=== PATIENT | male | born 1935 | race Caucasian/White ===

== ENCOUNTER → 2018-01-27 | Outpatient (CLI) | payer OTHER ==
[~2018-01-27] MED LIST: ACET500 PO; AMLO5 PO; AMOCLA875 PO; ASPI81CH PO; ASPI81EC PO; ATEN25 PO; ATEN50 PO; ATOR10 PO; ATOR20 PO; Aspir 8181 MG PO; BETA1 PO; BISA5EC PO; CINNAMON PO; CLOP75 PO; Cinnamon3.7 ML MC; ESTER-C 1,0001 EACH PO; FINA5 PO; FISH1000 PO; LAVAP17G PO; LEVE500 PO; LISI20 PO; METO10 PO; MULVITMIND PO; NEBI5 PO; OMEP20ER PO; Omeprazole20 M1 PO; PSYL5.85P PO; TAMS.4ER PO; UBID10; UBID10 PO
== END | disposition home or self-care (01) ==
LOC: PLD 08:17 → LAB SHORT 08:17
DX: L57.0 Actinic keratosis (principal)
CPT/HCPCS: 88305

== ENCOUNTER 2018-09-15 09:50 | Emergency (ER) | payer OTHER ==
[~2018-09-15] VITALS: Ht 177.8 cm; Wt 92.1 kg
[2018-09-15 11:14] LABS: Source, Urine Clean Catch
[2018-09-15 11:30] LABS: Bilirubin, Urine Neg (Neg); Blood, Urine Neg (Neg); Glucose Qualitative, Urine Neg (Neg); Ketones, Urine Neg (Neg); Leukocyte Esterase, Urine Neg (Neg); Nitrite, Urine Neg (Neg); Protein, Urine Neg (Neg); Urobilinogen, Urine NORM (Normal); pH, Urine 6.5 (5.0-8.0)
[2018-09-15 11:33] LABS: Appearance, Urine Clear (Clear); Color, Urine Yellow (P-Yellow)
[2018-09-15] MEDS ORDERED: QUET25 PO (11:37)
== END 2018-09-15 12:20 | disposition home or self-care (01) ==
LOC: ER 09:50
PROVIDERS: Emergency Medicine
DX: F03.90 Unspecified dementia, unspecified severity, without behavioral disturbance, psychotic disturbance, mood disturbance, and anxiety (principal); R45.1 Restlessness and agitation; F22 Delusional disorders; I10 Essential (primary) hypertension; I25.10 Atherosclerotic heart disease of native coronary artery without angina pectoris; E11.9 Type 2 diabetes mellitus without complications; E78.00 Pure hypercholesterolemia, unspecified; Z88.8 Allergy status to other drugs, medicaments and biological substances; Z79.899 Other long term (current) drug therapy; Z79.82 Long term (current) use of aspirin
CPT/HCPCS: 81003; 99283

== ENCOUNTER 2018-11-23 22:35 | Emergency (ER) | payer OTHER ==
[~2018-11-23] VITALS: Ht 172.7 cm; Wt 77.1 kg
[~2018-11-23 22:35] MED LIST changes: +QUET25 PO
== END 2018-11-24 00:20 | disposition home or self-care (01) ==
LOC: ER 22:35
DX: F03.90 Unspecified dementia, unspecified severity, without behavioral disturbance, psychotic disturbance, mood disturbance, and anxiety (principal); Z86.73 Personal history of transient ischemic attack (TIA), and cerebral infarction without residual deficits; E11.9 Type 2 diabetes mellitus without complications; Z87.891 Personal history of nicotine dependence; I10 Essential (primary) hypertension; I25.10 Atherosclerotic heart disease of native coronary artery without angina pectoris; Z79.899 Other long term (current) drug therapy; Z79.82 Long term (current) use of aspirin; Z88.8 Allergy status to other drugs, medicaments and biological substances
CPT/HCPCS: 99284

== ENCOUNTER 2018-12-02 11:37 | Inpatient (IN) | payer OTHER ==
[~2018-12-02] VITALS: Ht 177.8 cm; Wt 79.8 kg
[~2018-12-02 11:37] MED LIST changes: +Keppra750 MG PO
[2018-12-02 11:59] LABS: BASOPHILS ABSOLUTE AUTO 0.04 K/mm3 (0.00-0.23); BASOPHILS PERCENT AUTO 0 % (0-2); EOSINOPHILS PERCENT AUTO 0 % (0-6); Hematocrit 42.1 % (37.0-53.0); Hemoglobin 13.8 g/dL (13.5-17.5); IMMATURE GRAN ABSOLUTE AUTO 0.16 K/mm3 (0.00-0.10); IMMATURE GRAN PERCENT AUTO 1 % (0-1); LYMPHOCYTES ABSOLUTE AUTO 0.65 K/mm3 (0.84-5.20); LYMPHOCYTES PERCENT AUTO 3 % (21-46); MONOCYTES ABSOLUTE AUTO 0.78 K/mm3 (0.16-1.47); MONOCYTES PERCENT AUTO 4 % (4-13); Mean Corpuscular HGB 29.7 pg (26.0-34.0); Mean Corpuscular HGB Conc 32.8 g/dL (31.5-36.5); Mean Corpuscular Volume 91 fL (80-100); Mean Platelet Volume 11.5 fL (9.1-12.4); NEUTROPHILS ABSOLUTE AUTO 19.45 K/mm3 (1.96-9.15); NEUTROPHILS PERCENT AUTO 92 % (41-73); Platelet Count 296 K/mm3 (150-400); RDW Coefficient Variation 13.3 % (11.7-14.2); RDW Standard Deviation 43.8 fL (35.1-46.3); Red Blood Cell Count 4.65 M/mm3 (4.30-5.90); White Blood Cell Count 21.08 K/mm3 (4.00-11.30)
[2018-12-02 12:24] LABS: Albumin, Blood 3.8 g/dL (3.4-5.0); Albumin/Globulin Ratio 1.2 (0.8-1.8); Bilirubin, Total 0.5 mg/dL (0.1-1.0); Bun/Creatinine Ratio 17.9 (12.0-20.0); Calcium, Blood 9.1 mg/dL (8.5-10.1); Creatinine, Blood 2.07 mg/dL (0.60-1.20); Globulin, Blood 3.3 g/dL (2.2-4.0); Potassium, Blood 5.7 mmol/L (3.5-5.5); Total Protein, Blood 7.1 g/dL (6.4-8.2)
[2018-12-02 12:25] LABS: International Normalized Ratio 1.03; Prothrombin Time Results 10.9 Sec (9.7-11.5)
[2018-12-02] MEDS ORDERED: QUETIAPINE FUMA50 MG PO (12:45)
[2018-12-02] MEDS ORDERED: GABA300 PO (12:47)
[2018-12-02] MEDS ORDERED: FINA5 PO (12:47)
[2018-12-02] MEDS ORDERED: FURO20 PO (12:48)
[2018-12-02] MEDS ORDERED: LEVE500 PO (12:48)
[2018-12-02] MEDS ORDERED: LISI20 PO (12:48)
[2018-12-02] MEDS ORDERED: Zantac150 MG PO (12:49)
[2018-12-02] MEDS ORDERED: Exelon1 EAC1 TD (12:50)
[2018-12-02 13:27] LABS: Source, Urine Clean Catch
[2018-12-02 13:38] LABS: Bilirubin, Urine Neg (Neg); Blood, Urine 2+ (Neg); Glucose Qualitative, Urine Neg (Neg); Ketones, Urine 1+ (Neg); Leukocyte Esterase, Urine 1+ (Neg); Nitrite, Urine Neg (Neg); Protein, Urine 3+ (Neg); Specific Gravity, Urine 1.025 (1.003-1.022); Urobilinogen, Urine NORM (Normal)
[2018-12-02 13:48] LABS: Appearance, Urine Cloudy (Clear); Color, Urine Yellow (P-Yellow); Squamous Epithelial Cells Many /hpf (Few)
[2018-12-02 13:49] LABS: Bacteria Many /hpf; Red Blood Cells, Urine 0-2 /hpf (0-2)
[2018-12-02] MEDS ORDERED: ALPR.25 PO (14:29)
[2018-12-02] MEDS ORDERED: Ranitidine HCl300 MG PO (14:30)
--- NOTE | 2018-12-02 19:11 | NUR ---
HE WAS ADMITTED TO RM 337 FROM THE E[facility] THIS AFTERNOON BUT DUE TO HIS IMPULSIVE CONFUSED BEHAVIOR, HE WAS MOVED TO THE SCU TO RM 346. HIS WAS AWARE OF THE MOVE PRIOR TO HER LEAVING HIS BEDSIDE. I WILL CALL HER VERY SOON TO TELL HER THAT WE NEEDED TO PUT RESTRAINTS ON HIM ALSO TO KEEP HIM SAFE. HIS L.A. DRAW HEMOLIZED SO HAS BEEN REDRAWN NOW I BELIEVE. IVF'S WERE STARTED BUT HE COMPROMISED HIS IV SITE BY ALL HIS PULLING AND THRASHING. WILL REASSESS AND RESTART FLUIDS. NOTIFIED OF THE BEHAVIOR AND HIS TACHYCARDIA AT 140/MIN. ZYPREXA ORDERED AND IVF'S TO CONTINUE. PHOTOS TAKEN . SEE CHART. REPORT TO NIGHT RN.
[2018-12-03 01:04] LABS: BASOPHILS ABSOLUTE AUTO 0.03 K/mm3 (0.00-0.23); BASOPHILS PERCENT AUTO 0 % (0-2); EOSINOPHILS PERCENT AUTO 0 % (0-6); Hematocrit 35.4 % (37.0-53.0); IMMATURE GRAN ABSOLUTE AUTO 0.11 K/mm3 (0.00-0.10); IMMATURE GRAN PERCENT AUTO 1 % (0-1); LYMPHOCYTES ABSOLUTE AUTO 1.47 K/mm3 (0.84-5.20); LYMPHOCYTES PERCENT AUTO 7 % (21-46); MONOCYTES ABSOLUTE AUTO 1.49 K/mm3 (0.16-1.47); MONOCYTES PERCENT AUTO 7 % (4-13); Mean Corpuscular HGB 29.6 pg (26.0-34.0); Mean Corpuscular HGB Conc 33.9 g/dL (31.5-36.5); Mean Corpuscular Volume 87 fL (80-100); Mean Platelet Volume 11.5 fL (9.1-12.4); NEUTROPHILS ABSOLUTE AUTO 18.32 K/mm3 (1.96-9.15); NEUTROPHILS PERCENT AUTO 86 % (41-73); Platelet Count 248 K/mm3 (150-400); RDW Coefficient Variation 13.4 % (11.7-14.2); RDW Standard Deviation 42.8 fL (35.1-46.3); Red Blood Cell Count 4.05 M/mm3 (4.30-5.90); White Blood Cell Count 21.42 K/mm3 (4.00-11.30)
[2018-12-03 01:22] LABS: Albumin, Blood 3.3 g/dL (3.4-5.0); Albumin/Globulin Ratio 1.2 (0.8-1.8); Bilirubin, Total 0.5 mg/dL (0.1-1.0); Bun/Creatinine Ratio 24.5 (12.0-20.0); Calcium, Blood 8.3 mg/dL (8.5-10.1); Creatinine, Blood 1.59 mg/dL (0.60-1.20); Globulin, Blood 2.7 g/dL (2.2-4.0); Potassium, Blood 4.7 mmol/L (3.5-5.5)
--- NOTE | 2018-12-03 07:42 | NUR ---
12/02/18 2200 Pt had a critical lactic acid 3.7. Hospitalist Reny Castillo notified, 1 additional liter of fluid ordered. Hospitalist also notified of inability to void and extreme restlessness. Pt was bladder scanned for 440. Will straight cath if pt unable to void.
--- NOTE | 2018-12-03 07:45 | NUR ---
Rn summary: Patient has been restless most of the shift. Pt is in vest and thomas wrist shilpi for safety. Pt is constantly fighting the restraints and is not directable. Pt was straight cathed for 320cc strong urine at 2125. Pt was not able to void and 2nd bladder scan showed 520cc jeong cath placed without difficulty. Pt did receive zyprexa 10 mg IM and did sleep for a bit, 1.5 hours. Pt has otherwise been restless. He has pulled out 2 IV's and will pull on catheter even though restraints readjusted frequently. he wiggles down in bed. This am pt started to have a bit of a cough. Lungs sound sl more course, not really wet. Resp rate is 26. Pt medicated with prn lasix 20mg and iv fluids decreased to 25 until we can tallk with the DR. this am. Charge nurse was notified of the vew score of 4. Report to day shift RN. Cough was improved and hour after lasix given. Bed alarm is on. Close frequent monitoring.
--- NOTE | 2018-12-03 11:07 | NUR ---
HEART RATE THIS RN CALLED DR. SARKAR AND DISCUSSED PT'S HEART RATE THAT HAS SUSTAINED 120-130'S SINCE YESTERDAY. NO NEW ORDERS AT THIS TIME. DR. SARKAR SAID SHE WOULD LOOK OVER PT'S INFORMATION. WILL CONTINUE TO MONITOR.
--- NOTE | 2018-12-03 18:30 | NUR ---
PATIENT WAS NOT AWAKE ENOUGH TO EAT AT THIS TIME SO DINNER WAS NOT FED TO HIM. RN WAS NOTIFIED.
--- NOTE | 2018-12-03 18:40 | NUR ---
SHIFT SUMMARY PT HAS BEEN CONFUSED AND VERY RESTLESS ALL SHIFT. PT'S HEART RATE 120-130'S MOST OF THE SHIFT. THIS RN ADMINISTERED IV METOPROLOL X1 THIS SHIFT AND PT'S HEART RATE DOWN TO 116-120 FOR AWHILE. WHEN PT WAS SLEEPING BRIEFLY, HIS HEART RATE WAS 118. DR. SARKAR ORDERED PO METOPROLOL TO BE STARTED. FIRST DOSE GIVEN THIS EVENING. PT STARTED POCKETING HIS FOOD AT DINNER. DINNER HELD DUE TO THIS AND ASPIRATION RISK. NO ACUTE CHANGES THIS SHIFT. CALL LIGHT IN REACH. WILL CONTINUE TO MONITOR AND REPORT TO ONCOMING RN.
--- NOTE | 2018-12-04 03:18 | NUR ---
pt having increased agitation and attempting climb OOB, Ativan 1mg IVP given.
--- NOTE | 2018-12-04 04:05 | NUR ---
SHIFT SUMMARY: 83 Y/O MALE HAD RESTLESS NIGHT AT TIMES WITH ATIVAN 1MG IVP GIVEN X 2 WITH RELIEF FELT. PTS WAS ATTEMPTING PULL AT PENA, IV AND REMOVING TELEMETRY FREQUENTLY PRIOR TO ATIVAN. PT CONTINUES TO REQUIRE EDIL VEST AND BILATERAL SOFT WRIST RESTRAINTS FOR SAFETY. PT IS ALERT AND ORIENTED X 1, UNABLE TO FOLLOW ANY SIMPLE VERBAL COMMANDS AND REQUIRES REDIRECTION BY STAFF. PTS PENA CATHETER DRAINING YELLOW FLUID. PTS BED ALARM APPLIED, BED LOW POSITION, CALL LIGHT AT SIDE.
--- NOTE | 2018-12-04 06:22 | NUR ---
0614 PT INCREASINGLY AGITATED, MOVING AROUND IN BED AND UNABLE TO GET COMFORTABLE, UNABLE TO FOLLOW ANY REDIRECTIONS WHILE ATTEMPTING CLIMB OOB, REMOVING TELEMETRY AT TIMES. THIS NURSE GAVE PATIENT ATIVAN 1 MG, IVP VIA SL LEFT ANTECUBITAL.
--- NOTE | 2018-12-04 06:57 | NUR ---
PT RESTING COMFORTABLY LEFT LATERAL SIDE WITH RESTRAINTS INTACT.
--- NOTE | 2018-12-04 13:50 | NUR ---
Met in bed sleeping and the spouse in the room with him, she reports vu pt. is not improving , offered prayers and spiritual supportl
--- NOTE | 2018-12-04 15:10 | NUR ---
SPOKE WITH DR. SERRANO AND RENEWED ORDER FOR SOFT WRIST RESTRAINTS AND EDIL. CALLED DR. Archana REYES'S OFFICE AND LEFT MESSAGE WITH FACILITIES MAINTENANCE SUPERVISOR REGARDING NEW NURSE NOTIFY ORDER TO "D/C RESTRAINTS." AWAITING CALL BACK.
--- NOTE | 2018-12-04 18:09 | NUR ---
1730 FOLLEY CATHETER WAS REMOVED.
--- NOTE | 2018-12-04 19:03 | NUR ---
SHIFT SUMMARY- PT AXO TO SELF. PT C/O MOUTH PAIN THIS PM. MEDS GIVEN PER EMAR. RESP E/U ON RA. PENA AND TELE DC'D THIS PM. REMOVED WRIST RESTRAINTS THIS AFTERNOON. PT STARTED PULLING ON PENA, TELE AND IV. NOTIFIED DR. SERRANO RESTRAINTS STILL NEEDED. DR. SERRANO SAID OK TO RENEW RESTRAINT ORDER. A NURSE NOTIFY ENTERED BY MARYELLEN WAS ENTERED AFTER I SPOKE WITH DR. SERRANO AND RENEWED ORDER. CALLED DR. BOJORQUEZ'S OFFICE AND LEFT MESSAGE WITH MUSHROOM GROWTH MEDIA MIXER REGARDING THE MATTER AND A CALL BACK NUMBER. I DID NOT RECIEVE A CALL BACK. PT IN EDIL/WRIST RESTRAINTS PER DR. SERRANO. TURNS Q2H. NO OTHER SIGNIFICANT CHANGES THIS SHIFT.
--- NOTE | 2018-12-04 22:05 | NUR ---
2101 PT SLIGHTLY AGITATED AND ATTEMPTING CLIMB OOB, MOVING AROUND IN BED FROM LEFT TO RIGHT AND UNABLE TO FOLLOW ANY REDIRECTION WHILE EDIL AND BILATERAL SOFT WRIST RESTRAINTS APPLIED. ATIVAN 1MG IVP GIVEN WITH GOOD RELIEF NOTED.
--- NOTE | 2018-12-05 02:06 | NUR ---
PT INCONTINENT MODERATE AMOUNT YELLOW FLUID, BLADDERS SCANNED FOR 4 ML.
--- NOTE | 2018-12-05 04:05 | NUR ---
SHIFT SUMMARY: 83 Y/O MALE HAD RESTLESS BEGINNING TO SHIFT WITH ATTEMPTS CLIMB OOB WHILE PULLING AT SOFT WRIST RESTRAINTS AND EDIL VEST (PT GIVEN ATIVAN 1 MG IVP WITH RELIEF NOTED PATIENT WAS ABLE TO REST BETTER ALL SHIFT). PTS BLADDER WAS WAS INITIALLY 155ML AND THEN PATIENT HAD ONE MODERATE INCONTIENT VOID WITH BLADDER SCAN REFLECTING 4ML. PT TAKING FLUIDS WHEN OFFERED BY STAFF. PT IS ALERT TO PERSON ONLY AND MUMBLES INCOHERENT WORDS THAT ARE NOT UNDERSTANDABLE ALL SHIFT. PT CBG WAS 100 WITH NO COVERAGE ORDERED. PT APPEARS TO HAVE NO PAIN OR NAUSEA. PTS BED ALARM APPLIED, BED LOW POSITION, CALL LIGHT AT SIDE.
--- NOTE | 2018-12-05 05:10 | NUR ---
0434 PT INCREASINGLY AGITATED AGAIN, ATTEMPTING CLIMB OOB, GOWN REMOVED BY PATIENT WHILE TURNED SIDEWAYS IN BED. PT UNABLE TO FOLLOW ANY REDIRECTIONS FROM STAFF. PT REPOSITIONED AND NEW ATTENDS APPLIED (NO VOID) NOTED, ATIVAN 1 MG IVP GIVEN. 0510 PT RESTING COMFORTABLY NOW AFTER MEDICATIONS AND REPOSITIONING COMPLETED.
[2018-12-05 05:48] LABS: Albumin/Globulin Ratio 1.2 (0.8-1.8); Bilirubin, Total 0.5 mg/dL (0.1-1.0); Bun/Creatinine Ratio 17.4 (12.0-20.0); Calcium, Blood 8.3 mg/dL (8.5-10.1); Creatinine, Blood 1.44 mg/dL (0.60-1.20); Globulin, Blood 2.6 g/dL (2.2-4.0); Potassium, Blood 3.8 mmol/L (3.5-5.5); Total Protein, Blood 5.6 g/dL (6.4-8.2)
[2018-12-05 06:18] LABS: BASOPHILS ABSOLUTE AUTO 0.07 K/mm3 (0.00-0.23); BASOPHILS PERCENT AUTO 1 % (0-2); EOSINOPHILS ABSOLUTE AUTO 0.31 K/mm3 (0.00-0.68); EOSINOPHILS PERCENT AUTO 3 % (0-6); Hematocrit 37.5 % (37.0-53.0); Hemoglobin 12.5 g/dL (13.5-17.5); IMMATURE GRAN PERCENT AUTO 1 % (0-1); LYMPHOCYTES ABSOLUTE AUTO 1.39 K/mm3 (0.84-5.20); LYMPHOCYTES PERCENT AUTO 12 % (21-46); MONOCYTES ABSOLUTE AUTO 1.06 K/mm3 (0.16-1.47); MONOCYTES PERCENT AUTO 9 % (4-13); Mean Corpuscular HGB Conc 33.3 g/dL (31.5-36.5); Mean Platelet Volume 11.9 fL (9.1-12.4); NEUTROPHILS ABSOLUTE AUTO 9.04 K/mm3 (1.96-9.15); NEUTROPHILS PERCENT AUTO 76 % (41-73); Platelet Count 224 K/mm3 (150-400); RDW Coefficient Variation 13.3 % (11.7-14.2); RDW Standard Deviation 43.7 fL (35.1-46.3); Red Blood Cell Count 4.16 M/mm3 (4.30-5.90); White Blood Cell Count 11.97 K/mm3 (4.00-11.30)
[2018-12-05 06:19] LABS: Mean Corpuscular Volume 90 fL (80-100)
[2018-12-05 12:53] LABS: Source, Urine Catheter
[2018-12-05 13:14] LABS: Bilirubin, Urine Neg (Neg); Blood, Urine 4+ (Neg); Glucose Qualitative, Urine Neg (Neg); Ketones, Urine Neg (Neg); Leukocyte Esterase, Urine 1+ (Neg); Nitrite, Urine Neg (Neg); Protein, Urine 2+ (Neg); Urobilinogen, Urine NORM (Normal)
[2018-12-05 13:22] LABS: Appearance, Urine Hazy (Clear); Color, Urine Yellow (P-Yellow)
[2018-12-05 13:26] LABS: Squamous Epithelial Cells Rare /hpf (Few)
[2018-12-05 13:27] LABS: Bacteria Few /hpf; Uric Acid Crystals Many /hpf
--- NOTE | 2018-12-05 17:27 | NUR ---
SHIFT SUMMARY- PT AXO TO SELF. CONFUSED. NONSENSICAL SPEECH. NO S/S OF PAIN. PT PULLING ON RESTRAINTS, AGITATED AND DISROBING T/O SHIFT. MEDS GIVEN PER EMAR. PT KICKS AT TIMES DURING CHANGES/REPOSITIONING. BLADDER SCAN THIS AFTERNOON 675. PENA INSERTED PER PK ORDERS. DR. SERRANO NOTIFIED. EXELON PATCH REMOVED PER DR. SERRANO. PILLS CRUSHED IN APPLESAUCE. TURNS Q2H. NO OTHER SIGNIFICANT CHANGES THIS SHIFT.
--- NOTE | 2018-12-05 19:22 | NUR ---
IV LEAKING. IV ATIVAN NOT RECIEVED. IV REMOVED. NEW IV PLACED BY LOLIS MATA. MEDS GIVEN PER EMAR.
--- NOTE | 2018-12-05 20:33 | NUR ---
PT HAD INCREASED AGITATION SINCE THIS NURSE CAME ON SHIFT, ATIVAN 1MG IVP WAS GIVEN AT 1930 WITH MINIMAL RELIEF AGITATION. PT CONTINUES ATTEMPT TO PULL OUT PENA AND MOVING AROUND IN BED. PT HAS DEMENTIA AND UNABLE FOLLOW AND SIMPLE VERBAL COMMANDS. DR SOLIS CALLED WITH ORDERS FOR ATIVAN 1 MG IVP X 1 NOW.
--- NOTE | 2018-12-05 23:07 | NUR ---
2234 PT CONTINUES TO BE AGITATED AND ATTEMPTING TO PULL OUT IV, PENA, DISROBING IN ABLE BY REMOVING ATTENDS DIAPERS AND PANTS. ATIVAN 1 MG IVP X 1 GIVEN. PT REPOSITION X 2 ASSIST BY STAFF. PENA DRAINING LIGHT PINK FLUID.
--- NOTE | 2018-12-06 00:24 | NUR ---
0020 PT STILL AGITATED AND UNABLE TO SETTLE DOWN WHILE STILL ATTEMPING TO PULL AT IV AND PENA, PULLING AT ATTENDS DIAPERS AND GOWN WHILE REPOSITIONING SELF FREQUENTLY IN BED EVEN WITH EDIL VEST AND BILATERAL WRIST RESTRAINTS APPLIED. DR SOLIS CALLED AND ADVISED THAT ATIVAN 3MG HAD BEEN GIVEN SO FAR WITH ORDERS TO DISCONTINUE ATIVAN, GIVE HALDOL 3MG IVP Q6P.
--- NOTE | 2018-12-06 04:01 | NUR ---
PT CONTINUING TO JUMP OUT OF BED FREQUENTLY EVERY 5-15 MINUTES AND WANDER INTO BATHROOM BEFORE STAFF CAN ARRIVE WHICH IS IMMEDIATE. PT ALMOST FELL ONCE THIS EVENING WITH LEGAL OFFICE ADMINISTRATOR CATHCING PATIENT BEFORE HE REACHED THE FLOOR AFTER STAGGERNG NEAR BATHROOM DOOR. PTS GAIT IS SLOW, SHUFFLING AND VERY UNSTEADY WITH FURNITURE, HOLDER, OBJECTS HELD ONTO WHILE WALKING. PT IS ALERT PERSON ONLY. PT BECOMES AGITATED QUICKLY AT TIMES IF HELP IS OFFERED. PT SWEARS FREQUENTLY AT STAFF. PT OFFERED AND ATE FOOD WHICH STILL DID NOT DETER BEHAVIOR. THIS NURSE CALLED DR DENNIS--DIAL PAINTER WITH ORDERS FOR EDIL VEST AND ATIVAN 1 MG IVP X 1.
--- NOTE | 2018-12-06 06:34 | NUR ---
SHIFT SUMMARY: 83 Y/O MALE HAD VERY RESTLESS NIGHT WITH PATIENT UNABLE TO FALL ASLEEP UNTIL 0530. PTS VERY AGITATED AND ATTEMPTING TO PULL OUT PENA, IV AND CLIMB OOB. PTS HAS DEMENTIA AND WAS UNABLE TO FOLLOW AND REDIRECTIONS. HOSPITALIST PIN DRAFTING MACHINE TENDER WAS NOTIFIED MULTIPLE TIMES WITH ATIVAN 1 MG IVP GIVEN X 3 WITHOUT SUCCESS (MEDICATIONS WAS DISCONTINUED AND HALDOL 3MG IVP Q6P ORDERED WITH DOSAGE GIVEN AT 0040). PTS EDIL VEST AND BILATERAL SOFT WRIST RESTRAINTS MAINTAINED DUE TO BEHAVIOR AND ATTEMPTS TO PULL OUT PENA, IV AND CLIMB OOB. PTS PENA AT BEGINNING OF SHIFT WAS DRAINING DARK PINK FLUID AND AT END OF SHIFT WAS DRAINING CLEAR YELLOW FLUID. PT IS ALERT PERSON ONLY. PT APPEARS TO HAVE NO PAIN OR NAUSEA. PTS BED ALARM APPLIED WITH BED LOW POSITION, CALL LIGHT AT SIDE.
[2018-12-06 07:16] LABS: BASOPHILS ABSOLUTE AUTO 0.05 K/mm3 (0.00-0.23); BASOPHILS PERCENT AUTO 0 % (0-2); EOSINOPHILS ABSOLUTE AUTO 0.14 K/mm3 (0.00-0.68); EOSINOPHILS PERCENT AUTO 1 % (0-6); Hematocrit 38.6 % (37.0-53.0); Hemoglobin 12.8 g/dL (13.5-17.5); IMMATURE GRAN ABSOLUTE AUTO 0.09 K/mm3 (0.00-0.10); IMMATURE GRAN PERCENT AUTO 1 % (0-1); LYMPHOCYTES ABSOLUTE AUTO 1.09 K/mm3 (0.84-5.20); LYMPHOCYTES PERCENT AUTO 9 % (21-46); MONOCYTES ABSOLUTE AUTO 0.96 K/mm3 (0.16-1.47); MONOCYTES PERCENT AUTO 8 % (4-13); Mean Corpuscular HGB 29.3 pg (26.0-34.0); Mean Corpuscular HGB Conc 33.2 g/dL (31.5-36.5); Mean Corpuscular Volume 88 fL (80-100); Mean Platelet Volume 11.6 fL (9.1-12.4); NEUTROPHILS ABSOLUTE AUTO 9.93 K/mm3 (1.96-9.15); NEUTROPHILS PERCENT AUTO 81 % (41-73); Platelet Count 254 K/mm3 (150-400); RDW Coefficient Variation 13.2 % (11.7-14.2); RDW Standard Deviation 41.9 fL (35.1-46.3); Red Blood Cell Count 4.37 M/mm3 (4.30-5.90); White Blood Cell Count 12.26 K/mm3 (4.00-11.30)
[2018-12-06 07:33] LABS: Albumin, Blood 3.2 g/dL (3.4-5.0); Albumin/Globulin Ratio 1.1 (0.8-1.8); Bun/Creatinine Ratio 16.3 (12.0-20.0); Calcium, Blood 8.6 mg/dL (8.5-10.1); Creatinine, Blood 1.29 mg/dL (0.60-1.20); Globulin, Blood 2.8 g/dL (2.2-4.0); Magnesium, Blood 2.1 mg/dL (1.6-2.4); Phosphorus, Blood 3.6 mg/dL (2.5-4.9); Potassium, Blood 3.6 mmol/L (3.5-5.5)
--- NOTE | 2018-12-06 10:25 | NUR ---
NOTIFIED DR. SERRANO PT'S BP 185/113 AND HR [address]. SERRANO PT IS TOO LETHARGIC TO STAY AWAKE AND TAKE PO MEDS. DR. SERRANO SAID HE SPOKE WITH THE PT'S AND THEY ARE LEANING TOWARDS COMFORT CARE. DR. SERRANO SAID TO ORDER O.1 MG CATAPRES PATCH TO BE REPLACED ONCE A WEEK. NO OTHER NEW ORDERS AT THIS TIME.
--- NOTE | 2018-12-06 15:07 | NUR ---
NOTIFIED DR. SERRANO PT'S BP 189/[address] PT RECIEVED HIS PO BLOOD PRESSURE MEDS AND HIS BP STILL HAS NOT COME DOWN. NOTIFIED DR. SERRANO PT IS STILL AGITATED/ANXIOUS. DR. SERRANO REPORTS HE WILL PUT IN ORDER FOR PO CLONIDINE. NO OTHER NEW ORDERS AT THIS TIME.
--- NOTE | 2018-12-06 15:58 | NUR ---
NOTIFIED DR. ZACH OWUSU NOT EFFECTIVE, PT REMAINS AGGITATED AND TRIED TO KICK/HIT STAFF DURING BED CHANGE. NOTIFIED DR. SERRANO ANOTHER MED IS NEEDED IN ORDER TO PLACE POWERGLIDE. DR. SERRANO SAID HE WILL PUT IN ORDERS FOR ANOTHER MEDICATION. NO OTHER NEW ORDERS AT THIS TIME.
--- NOTE | 2018-12-06 18:44 | NUR ---
SHIFT SUMMARY- PT AXO TO SELF. NONSENSICAL SPEECH. CONFUSED. PT ANXIOUS/AGITATED AND PULLING ON RESTRAINTS/SHAKING SIDERAILS ON BED. MEDS GIVEN PER EMAR. DR. SERRANO D/C IV HALDOL AND ORDERED IM ZYPREXA. SEE PREVIOUS NOTE. MEDS GIVEN PER EMAR. BP ELEVATED THIS AM AND AFTERNOON. MEDS GIVEN PER EMAR. BP 139/90 THIS PM. PT RESTING PEACEFULLY THIS PM. RESP E/U ON RA. TURNS Q2H. PT'S SPOUSE IN TO VISIT THIS AM. NO OTHER SIGNIFICANT CHANGES THIS SHIFT.
[2018-12-07 05:08] LABS: BASOPHILS ABSOLUTE AUTO 0.06 K/mm3 (0.00-0.23); BASOPHILS PERCENT AUTO 1 % (0-2); EOSINOPHILS ABSOLUTE AUTO 0.23 K/mm3 (0.00-0.68); EOSINOPHILS PERCENT AUTO 2 % (0-6); Hematocrit 40.4 % (37.0-53.0); Hemoglobin 13.1 g/dL (13.5-17.5); IMMATURE GRAN ABSOLUTE AUTO 0.09 K/mm3 (0.00-0.10); IMMATURE GRAN PERCENT AUTO 1 % (0-1); LYMPHOCYTES PERCENT AUTO 9 % (21-46); MONOCYTES ABSOLUTE AUTO 1.29 K/mm3 (0.16-1.47); MONOCYTES PERCENT AUTO 10 % (4-13); Mean Corpuscular HGB 28.9 pg (26.0-34.0); Mean Corpuscular HGB Conc 32.4 g/dL (31.5-36.5); Mean Corpuscular Volume 89 fL (80-100); Mean Platelet Volume 11.7 fL (9.1-12.4); NEUTROPHILS ABSOLUTE AUTO 10.18 K/mm3 (1.96-9.15); NEUTROPHILS PERCENT AUTO 78 % (41-73); Platelet Count 265 K/mm3 (150-400); RDW Coefficient Variation 13.2 % (11.7-14.2); RDW Standard Deviation 42.9 fL (35.1-46.3); Red Blood Cell Count 4.53 M/mm3 (4.30-5.90); White Blood Cell Count 13.05 K/mm3 (4.00-11.30)
--- NOTE | 2018-12-07 05:12 | NUR ---
MEDICAL GENETICIST SUMMARY PT. ALERT TO SELF BUT CONFUSED. TEMPERATURE OF 101.2 AT THE BEGINNING OF THE SHIFT, NO OTHER SX'S NOTED AT THE TIME. PT. WAS RESTING COMFORTABLY IN BED. TYLENOL GIVEN PER ORDER, REASSESSMENT OF TEMPERATURE WAS 98.8. SUBSORTER PT. AGITATED PULLING/TUGGING AT RESTRAINTS AND PENA CATHETER. MOUTH CARE PROVIDED AND PT. REPOSITIONED. ZYPREXA GIVEN PER ORDER. VITALS SIGNS THIS AM WNL, TEMP AT 97.3. PT. RESTING COMFORTABLY IN BED, NO APPARENT DISTRESS NOTED. RESTRAINTS SAFELY IN PLACE AND IV FLUIDS RUNNING. WILL CONT TO MONITOR.
[2018-12-07 05:35] LABS: Albumin, Blood 3.1 g/dL (3.4-5.0); Albumin/Globulin Ratio 1.1 (0.8-1.8); Bilirubin, Total 0.8 mg/dL (0.1-1.0); Bun/Creatinine Ratio 13.5 (12.0-20.0); Calcium, Blood 8.6 mg/dL (8.5-10.1); Creatinine, Blood 1.26 mg/dL (0.60-1.20); Globulin, Blood 2.9 g/dL (2.2-4.0); Potassium, Blood 3.3 mmol/L (3.5-5.5)
--- NOTE | 2018-12-07 10:16 | NUR ---
FOUND DARK RED AREA ON PATIENTS COCCYX 2 AREAS ABOUT THE SIZE OF A DIME... NURSE NOTIFIED
--- NOTE | 2018-12-07 14:07 | NUR ---
Met pt lying in bed resting he reports doing well encouraged pt . and offered some prayers.
--- NOTE | 2018-12-07 16:03 | NUR ---
ASKED FOR ZYPREXA BY MOUTH I FEEL HE MAY TAKE IT THAT WAY.
--- NOTE | 2018-12-07 18:41 | NUR ---
APPEARS TO BE ALERT TO SELF AND FAMILY. GARBLED SPEECH, VERY DIFFICULT TO UNDERSTAND. COOPERATIVE WITH MEDS. STILL TRIES TO PULL ON LINES AND TUBES. WAS UP IN CHAIR AND AT DOOR WAY AND SEEMED TO BE COOPERATIVE FOR AWHILE. AMBULATORY ONE PERSON ASSIST WITH LOTS OF CUES. TAKES SMALL STEPS. UNLABORED RESPIRATIONS. RESTRAINTS RENEWED. WCTM.
--- NOTE | 2018-12-08 05:03 | NUR ---
PT. RESTLESS T/O THE SHIFT. EDIL VEST AND BILATERAL SOFT WRIST RESTRAINTS REMAIN IN PLACE. GARBLED SPEECH AT TIMES DIFFICULT TO UNDERSTAND. MEDICATIONS CRUSHED AND GIVEN WITH APPLESAUCE. PT. TOLERATED WELL. BP STILL ELEVATED. PENA CATHETER IN PLACE, LIGHT PINK NOTED IN URINE BAG AT THE BEGINNING OF SHIFT. WAS REPORTED PT. HAD BEEN PULLING AT CATHETER. URINE IS NOW CLEAR AND YELLOW. PT. IS RESTING COMFORTABLY IN BED, NO APPARENT DISTRESS NOTED. CALL LIGHT WITHIN REACH AND SIDE RAILS UP X3. WILL CONT TO MONITOR.
[2018-12-08 05:18] LABS: BASOPHILS ABSOLUTE AUTO 0.05 K/mm3 (0.00-0.23); BASOPHILS PERCENT AUTO 0 % (0-2); EOSINOPHILS PERCENT AUTO 2 % (0-6); Hematocrit 41.5 % (37.0-53.0); Hemoglobin 13.7 g/dL (13.5-17.5); IMMATURE GRAN PERCENT AUTO 1 % (0-1); LYMPHOCYTES PERCENT AUTO 9 % (21-46); MONOCYTES ABSOLUTE AUTO 1.16 K/mm3 (0.16-1.47); MONOCYTES PERCENT AUTO 8 % (4-13); Mean Corpuscular HGB 29.2 pg (26.0-34.0); Mean Corpuscular Volume 89 fL (80-100); Mean Platelet Volume 11.7 fL (9.1-12.4); NEUTROPHILS ABSOLUTE AUTO 11.54 K/mm3 (1.96-9.15); NEUTROPHILS PERCENT AUTO 80 % (41-73); Platelet Count 270 K/mm3 (150-400); RDW Coefficient Variation 13.7 % (11.7-14.2); RDW Standard Deviation 43.3 fL (35.1-46.3); Red Blood Cell Count 4.69 M/mm3 (4.30-5.90); White Blood Cell Count 14.45 K/mm3 (4.00-11.30)
[2018-12-08 05:39] LABS: Bun/Creatinine Ratio 9.4 (12.0-20.0); Calcium, Blood 8.5 mg/dL (8.5-10.1); Creatinine, Blood 1.38 mg/dL (0.60-1.20); Potassium, Blood 3.1 mmol/L (3.5-5.5)
--- NOTE | 2018-12-08 07:48 | NUR ---
PATIENT IN BED. STAT LOCK BROKEN OFF, PULLING ON PENA. WRIST RESTRAINTS LOOSE. STAT LOCK REPLACED. BOTTOM PJ PUT ON BACKWARDS AND TIED IN BACK.
--- NOTE | 2018-12-08 13:00 | NUR ---
AFTER P.T. PATIENT IN RECLINER AND TO DOORWAY FOR CLOSER MONITORING AND TO SEE HOW PATIENT DOES.
--- NOTE | 2018-12-08 13:14 | NUR ---
TALKED TO ABOUT; ZYPREXA IM AND P.O. NIGHTS DID BETTER WITH IM, D'C IV, INCLUDE P.O. ANTIBIOTICS AND THEN MAY BE ABLE TO TAKE RESTRAINTS OFF. STS WILL CHECK AND WILL SEE PATIENT IN SHORT TIME. W/PATIENT AND AWARE MD WILL BE UP.
--- NOTE | 2018-12-08 14:45 | NUR ---
Pt. is lying in bed and his therapist is in the room attending to his needs and is doing much better encouraged pt. and offered some prayers.
--- NOTE | 2018-12-08 18:15 | NUR ---
PATIENT ALERT TO SELF AND FAMILY.LT ARM NOT RESTRAINED FOR 1 HOUR AND PATIENT WAS ABLE TO DRINK MILK WITHOUT DIFFICULTY ON HIS OWN. RN LEFT ROOM PATIENT PULLED BEDSIDE TABLE TO HIM WHICH HAD BOOK AND MOUTHWASH ON IT. PROJECT ENGINEERING DIRECTOR ENTERED ROOM AND PATIENT ATTEMPTED TO DRINK MOUTHWASH. WHEN PROJECT ENGINEERING DIRECTOR TRIED TO TAKE MOUTHWASH AWAY PATIENT STARTED SWINGING AT STAFF. PATIENT BACK IN 2 POINT RESTRAINTS AND EDIL. PATIENT VERY AGITATED. KICKING IN ALL DIRECTIONS. PATIENT HAS SUNDOWNERS PER DAUGHTER. BED IN LOW POSITION. TM
--- NOTE | 2018-12-08 22:34 | NUR ---
@2044 PT. AGITATED THIS EVENING. ZYPREXA IM GIVEN PER ORDER, TWO OTHER NURSES ASSISTED THIS NURSE PT. VERY COMBATIVE, HITTING AND KICKING. AFTER MEDICATION ADMINISTERED IN THE THIGH AREA, PT. GRABBED THIS NURSE'S HAND HOLDING THE SYRINGE AND SCRATCHED HIS OWN LEG WITH NEEDLE IN THE PROCESS. NURSING STAFF ABLE TO REMOVE THE SYRINGE WITH NEEDLE FROM PT'S HAND W/O ANY FURTHER INJURY TO THE PT OR NURSES IN THE ROOM. SYRINGE PROPERLY DISPOSED OF IN THE RED SHARPS CONTAINER. MILD BLEEDING NOTED TO RT ANTERIOR THIGH. CLEANED AREA WITH GAUZE AND APPLIED BANDAID. PT. REPOSITIONED IN BED, EDIL VEST RESTRAINT AND BILATERAL SOFT WRIST RESTRAINTS SECURED PROPERLY. CIRCULATION AND SKIN CONDITION ASSESSED. CALL LIGHT WITHIN REACH, SIDE RAILS UP X3, AND BED ALARM. WILL CONT TO MONITOR.
--- NOTE | 2018-12-08 22:54 | NUR ---
PT. ASLEEP IN BED, NO APPARENT DISTRESS NOTED. RESTRAINTS IN PLACE. CALL LIGHT WITHIN REACH, SIDE RAILS UP X3, AND BED ALARM ON. WILL CONT TO MONITOR.
--- NOTE | 2018-12-09 05:16 | NUR ---
PT. VERY AGITATED AT THE BEGINNING OF SHIFT, HITTING AND KICKING NURSING STAFF (SEE NURSE NOTES FOR DETAILS). REMAINS IN A EDIL VEST AND BILATERAL SOFT WRIST RESTRAINTS IN PLACE. ZYPREXA IM GIVEN PER ORDER. PT. SETTLED DOWN SHORTLY AFTER MED ADMINISTRATION. ASLEEP T/O THE NIGHT, NO APPARENT DISTRESS NOTED. CALL LIGHT IS WITHIN REACH, SIDE RAILS UP X3, AND BED ALARM ON.
[2018-12-09 08:01] LABS: BASOPHILS ABSOLUTE AUTO 0.06 K/mm3 (0.00-0.23); BASOPHILS PERCENT AUTO 0 % (0-2); EOSINOPHILS ABSOLUTE AUTO 0.57 K/mm3 (0.00-0.68); EOSINOPHILS PERCENT AUTO 4 % (0-6); Hematocrit 40.1 % (37.0-53.0); Hemoglobin 13.2 g/dL (13.5-17.5); IMMATURE GRAN ABSOLUTE AUTO 0.09 K/mm3 (0.00-0.10); IMMATURE GRAN PERCENT AUTO 1 % (0-1); LYMPHOCYTES ABSOLUTE AUTO 1.14 K/mm3 (0.84-5.20); LYMPHOCYTES PERCENT AUTO 7 % (21-46); MONOCYTES ABSOLUTE AUTO 1.11 K/mm3 (0.16-1.47); MONOCYTES PERCENT AUTO 7 % (4-13); Mean Corpuscular HGB 29.5 pg (26.0-34.0); Mean Corpuscular HGB Conc 32.9 g/dL (31.5-36.5); Mean Corpuscular Volume 90 fL (80-100); Mean Platelet Volume 11.8 fL (9.1-12.4); NEUTROPHILS ABSOLUTE AUTO 13.52 K/mm3 (1.96-9.15); NEUTROPHILS PERCENT AUTO 82 % (41-73); Platelet Count 266 K/mm3 (150-400); RDW Coefficient Variation 13.8 % (11.7-14.2); RDW Standard Deviation 43.9 fL (35.1-46.3); Red Blood Cell Count 4.48 M/mm3 (4.30-5.90); White Blood Cell Count 16.49 K/mm3 (4.00-11.30)
[2018-12-09 08:55] LABS: Bun/Creatinine Ratio 12.5 (12.0-20.0); Calcium, Blood 8.6 mg/dL (8.5-10.1); Creatinine, Blood 1.28 mg/dL (0.60-1.20); Potassium, Blood 3.4 mmol/L (3.5-5.5)
--- NOTE | 2018-12-09 14:44 | NUR ---
Pt. is sitting in a chair and slow to talk 0ffered spioritual support and prayers .
--- NOTE | 2018-12-09 15:37 | NUR ---
ASKED ABOUT HOLDING APRESOLINE. B.P. 106/65. NORMALLY B.P. HIGH. HOLD THIS DOSE.
--- NOTE | 2018-12-09 18:21 | NUR ---
PATIENT ALERT TO SELF. MEDS ADJUSTED TODAY WITH RN ATTEMPTING TO TRY AND D'C RESTRAINTS. WHEN ONE ARM RESTRAINT D'C PATIENT ALMOST IMMEDIATELY STARTED PULLING ON PENA TUBE. UNABLE TO REDIRECT PATIENT. RESTRAINT PUT BACK ON. TODAY NOT COOPERATIVE WITH MEDS PATIENT SEEMED TO WANT TO HOLD MEDS THAT WERE CRUSHED IN APPLESAUCE IN HIS MOUTH EVEN AFTER DRINKING MILK.RESTRAINT ORDER RENEWED. UNLABORED RESPIRATIONS. VERY UNSTEADY ON FEET. 2 PERSON MAX ASSIST. BED IN LOW POSITION. WCTM.
--- NOTE | 2018-12-10 05:12 | NUR ---
83 year old Male admitted with sepsis continues to require bilat wrist restraints and vest restraint to prevent removal of medical equipment and prevent falls. PT attempts to climgb out of bed multiple times unassisted and sets off bed alarm. Speech garbled, able to communicate, does not use call rocha. Aspiration precautions continue with aspiration precautions in place. fed snack, does not take fluids well. talkative reminissing adout family,. cooperative with meds crushed. prn zyprexa x 1 with minimal effect. minimal sleep. Periscrotal and perianal area excoration treated with calmaseptic with mild helpful effect. Foam changed to open area coccyx. Medicated with tylenol 650 mg po with mild helpful effect for gen pain.
[2018-12-10 05:29] LABS: BASOPHILS ABSOLUTE AUTO 0.05 K/mm3 (0.00-0.23); BASOPHILS PERCENT AUTO 0 % (0-2); EOSINOPHILS ABSOLUTE AUTO 0.27 K/mm3 (0.00-0.68); EOSINOPHILS PERCENT AUTO 1 % (0-6); Hematocrit 40.7 % (37.0-53.0); Hemoglobin 13.6 g/dL (13.5-17.5); IMMATURE GRAN ABSOLUTE AUTO 0.13 K/mm3 (0.00-0.10); IMMATURE GRAN PERCENT AUTO 1 % (0-1); LYMPHOCYTES ABSOLUTE AUTO 1.19 K/mm3 (0.84-5.20); LYMPHOCYTES PERCENT AUTO 6 % (21-46); MONOCYTES ABSOLUTE AUTO 1.37 K/mm3 (0.16-1.47); MONOCYTES PERCENT AUTO 7 % (4-13); Mean Corpuscular HGB 29.2 pg (26.0-34.0); Mean Corpuscular HGB Conc 33.4 g/dL (31.5-36.5); Mean Corpuscular Volume 88 fL (80-100); Mean Platelet Volume 11.8 fL (9.1-12.4); NEUTROPHILS ABSOLUTE AUTO 16.45 K/mm3 (1.96-9.15); NEUTROPHILS PERCENT AUTO 85 % (41-73); Platelet Count 264 K/mm3 (150-400); RDW Coefficient Variation 13.8 % (11.7-14.2); RDW Standard Deviation 43.1 fL (35.1-46.3); Red Blood Cell Count 4.65 M/mm3 (4.30-5.90); White Blood Cell Count 19.46 K/mm3 (4.00-11.30)
--- NOTE | 2018-12-10 13:28 | NUR ---
Met ptAnayeli rmoero in a chair and is doing much better envouraged pt. and offered prayers.
--- NOTE | 2018-12-10 18:34 | NUR ---
NEED FOR RESTRAINTS STILL .
--- NOTE | 2018-12-10 22:39 | NUR ---
PT CONTINUES TO REQUIRE BILAT WRIST AND VEST RESTRAINT TO PREVENT FALLS AND UNASSISTED TRANSFERS AND REMOVAL OF MEDICAL EQUIPMENT.
--- NOTE | 2018-12-11 06:20 | NUR ---
pt CONTINUES WITH INTERMITTANT MILD AGRESSIVE VERBALIZATIONS. CONTINUES TO REQUIRE SOFT WRIST RESTRAINTS AND VEST RESTRAINT TO PREVENT FALLS AND REMOVAL OF MEDICAL EQUIPMENT. HE ACTUALLY SLEPT WELL DESPITE SPITTING OUT SOME OF HIS HS MEDS CRUUSHED. REFUSED AM LABS SWINGING AT SOFTWARE TESTER. VERBALLY THREATENED RN BUT NO ATTEMPTS TO HIT ME.
[2018-12-11 09:20] LABS: BASOPHILS ABSOLUTE AUTO 0.06 K/mm3 (0.00-0.23); BASOPHILS PERCENT AUTO 0 % (0-2); EOSINOPHILS ABSOLUTE AUTO 0.41 K/mm3 (0.00-0.68); EOSINOPHILS PERCENT AUTO 3 % (0-6); Hematocrit 39.7 % (37.0-53.0); Hemoglobin 13.1 g/dL (13.5-17.5); IMMATURE GRAN ABSOLUTE AUTO 0.11 K/mm3 (0.00-0.10); IMMATURE GRAN PERCENT AUTO 1 % (0-1); LYMPHOCYTES PERCENT AUTO 10 % (21-46); MONOCYTES ABSOLUTE AUTO 1.21 K/mm3 (0.16-1.47); MONOCYTES PERCENT AUTO 9 % (4-13); Mean Corpuscular HGB 29.3 pg (26.0-34.0); Mean Corpuscular Volume 89 fL (80-100); Mean Platelet Volume 12.1 fL (9.1-12.4); NEUTROPHILS ABSOLUTE AUTO 10.35 K/mm3 (1.96-9.15); NEUTROPHILS PERCENT AUTO 77 % (41-73); Platelet Count 264 K/mm3 (150-400); RDW Coefficient Variation 13.8 % (11.7-14.2); RDW Standard Deviation 44.4 fL (35.1-46.3); Red Blood Cell Count 4.47 M/mm3 (4.30-5.90); White Blood Cell Count 13.54 K/mm3 (4.00-11.30)
[2018-12-11 09:33] LABS: Bun/Creatinine Ratio 17.6 (12.0-20.0); Calcium, Blood 9.1 mg/dL (8.5-10.1); Creatinine, Blood 1.25 mg/dL (0.60-1.20); Potassium, Blood 3.5 mmol/L (3.5-5.5)
--- NOTE | 2018-12-11 14:15 | NUR ---
Pt. is sitting up in a chair and eating his lunch , seems to be doing much better prayed for the pt.
--- NOTE | 2018-12-11 18:10 | NUR ---
PATIENT WAS PLEASANT AND COOPERATIVE ALL SHIFT. HE REMAINS CONFUSED AT TIMES AND HARD TO VERBALLY UNDERSTAND. PATIENT STARTS TO GET AGITATED AND SUNDOWNERS AROUND 1700 . AT THIS TIME HE IS STILL ABLE TO FOLLOW DIRECTIONS BUT IS BECOMING MORE AGITATED AND ATTEMPTS TO GET UP WITHOUT ASSISTANCE. RESTRAINTS STILL ON AND NEEDED. REPORTS SORE TONGUE , DOCTOR AWARE. FAMILY AT BEDSIDE IN THE MORNING.
--- NOTE | 2018-12-12 04:19 | NUR ---
SHIFT SUMMARY: PT IS ALERT AND ORIENTED TO SELF. PT CALM AND COOPERATIVE WITH CARE. PT TOOK MEDS CRUSHED IN APPLE SAUCE WITHOUT INCIDENT. PT IN VEST AND BL WRIST RESTRAINTS FOR HIGH FALL RISK AND INTERMITTENT COMBATIVENESS. PENA PATENT AND DRAINING YELLOW URINE. PT VERBAL BUT DIFFICULT TO UNDERSTAND. PT SHOWS NO S/S FOR PAIN, NAUSEA, VOMITING, OR SOB. PT SLEPT INTERMITTENTLY THROUGHOUT THE NIGHT. NO ACUTE CHANGES OR COMPLICATIONS THIS SHIFT. BED IN LOW POSITION, CALL LIGHT WITHIN REACH, BED ALARM SET. WILL CONTINUE TO MONITOR.
--- NOTE | 2018-12-12 17:56 | NUR ---
PATIENT IS ALERT. ORIENTED TO SELF. GARBLED SPEECH DUE TO SURGERY ON THE TONGUE ACCORDING TO THE PATIENT'S . PENA IN PLACE. PATIENT HAS SPIT OUT FOOD AT THE ODD JOB WORKER WHILE BEING FED TWICE TODAY. HE CAN BE DIFFICULT TO REDIRECT. SOFT WRIST RESTRAINTS AND EDIL VEST IN PLACE TO PROTECT IV LINE AND PENA ALONG WITH FALL PREVENTION. WILL CONTINUE TO MONITOR
--- NOTE | 2018-12-13 05:03 | NUR ---
SHIFT SUMMARY: PT IS ALERT AND CONFUSED AT BASELINE. INTERMITTENT AGITATION AND COMBATIVENESS. PENA REMOVED, PT HAD SEVERAL INCONTINENT VOIDS SINCE REMOVAL, CHANGED AND CLEANED NEEDED. PT CONTINUES TO BE IN BL WRIST AND VEST RESTRAINTS. PT SHOWS NO S/S FOR PAIN, NAUSEA, VOMITING, AND SOB. PT SLEPT PERIODICALLY THROUGHOUT THE NIGHT. NO ACUTE CHANGES OR COMPLICATIONS. WILL CONTINUE TO MONITOR.
[2018-12-13 16:46] LABS: Source, Urine Catheter
[2018-12-13 16:49] LABS: Bilirubin, Urine Neg (Neg); Blood, Urine 5+ (Neg); Glucose Qualitative, Urine Neg (Neg); Ketones, Urine 2+ (Neg); Leukocyte Esterase, Urine Neg (Neg); Nitrite, Urine Neg (Neg); Protein, Urine 1+ (Neg); Specific Gravity, Urine 1.015 (1.003-1.022); Urobilinogen, Urine NORM (Normal)
[2018-12-13 17:05] LABS: Appearance, Urine Hazy (Clear); Color, Urine Yellow (P-Yellow)
[2018-12-13 17:06] LABS: Squamous Epithelial Cells Mod /hpf (Few); White Blood Cells, Urine 0-2 /hpf (0-5)
[2018-12-13 17:07] LABS: Bacteria Few /hpf; Red Blood Cells, Urine TNTC /hpf (0-2)
--- NOTE | 2018-12-13 17:16 | NUR ---
SHIFT SUMMARY PT NOT ORIENTED, THOUGH ALERT, AGGITATED AND COMBATIVE AT TIMES. AT 0741, PT WAS AGGITATED, KICKING STAFF, HITTING AND THREATENING. PT MEDICATED PER EMAR WITH IM ZYPREXA AT 0813. BLADDER SCAN AT 0936 REVEALED GREATER THAN 999ML RETAINED. NURSE COMPLETED STRAIGHT CATH PER ORDERS AND GOT OUT ABOUT 1000ML. PT CALMED AND WAS ABLE TO TAKE MORNING MEDICATIONS AT 1029. PT EATING MEALS WITH ASSISTANCE, SWALLOWING WELL WHEN HE IS HUNGRY. THEN AT 1415, BLADDER SCAN REVEALED 486ML RETAINED. NURSE ATTEMPTED STRAIGHT CATH, WITHOUT SUCCESS. NURSE CALLED DR SARKAR AT 1553 WHO ORDERED INDWELLING PENA, NYSTATING FOR MARY ELLEN AREA REDNESS, DC'D FLOMAX AND WAS ALSO NOTIFIED OF PT TEMPERATURE OF 99.8. PT GROWING MORE AGGITATED AND MEDICATED WITH ZYPREXA AT 1610 THEN PENA INSERTED. PT TOLERATED WELL. PT THEN MEDICATED WITH AFTERNOON MEDICATIONS WHICH HE HELD IN HIS MOUTH AND THEN AFTER ABOUT 5 MINUTES SPIT OUT. NURSE SUCTIONED THE REST OF THE MEDS RETAINED IN HIS MOUTH, NOTIFIED. PT RESTING SOON THEREAFTER, SLEEPING. NURSE TRIALING RESTRAINT REMOVAL AT THIS TIME. BED IN LOW POSITION, CALL LIGHT WITHIN REACH, BED ALARM ON AND VERIFIED.
--- NOTE | 2018-12-13 17:55 | NUR ---
PATIENT WAS ATTEMPTING OOB, HEAD FIRST. BED ALARM ACTIVATED AND NURSE ENTERED ROOM. PT FAILED TRIAL REMOVAL OF RESTRAINTS. PT AGGITATED AND ATTEMPTING TO HIT NURSE. RESTRAINTS REAPPLIED.
--- NOTE | 2018-12-14 05:13 | NUR ---
SHIFT SUMMARY: PT IS ALERT AND CONFUSED AT BASELINE. PT REFUSED EVENING MEDICATIONS AND WAS COMBATIVE WHEN MINIBUS DRIVER TRYING TO GET VS. PT CONTINUES TO BE IN BL WRIST AND VEST RESTRAINTS, CONFUSED AND HIGH FALL RISK. PT SLEPT INTERMITTENTLY THROUGHOUT THE NIGHT. PENA PATENT AND DRAINING YELLOW URINE. PT SHOWS NO S/S FOR PAIN, NAUSEA, VOMITING, OR SOB. NO ACUTE CHANGES OR COMPLICATIONS THIS SHIFT. WILL CONTINUE TO MONITOR.
--- NOTE | 2018-12-14 18:29 | NUR ---
PT WAS PLEASANT AND COOPERATIVE THIS AM, STILL CONFUSED WITH GARBLE SPEECH. UNABLE TO UNDERSTAND WHAT HE SAYS. HE WALKED IN THE [facility] WITH PHYSICAL THERAPY THIS MORNING AND SAT IN BEDSIDE CHAIR. HIS AGITATION HAS INCREASED THIS AFTERNOON, PULLING AT RESTRAINTS AND PENA CATH, ATTEMPTING TO GET TONYA BED. P.O. SEROQUEL AND IM ZYPREXA GIVEN. PT WAITING FOR DISCHARGE PLACEMENT. WILL CONTINUE TO MONITOR AND REPORT TO ONCOMING RN.
--- NOTE | 2018-12-15 06:02 | NUR ---
SHIFT SUMMARY PT REMAINS IN RESTRAINTS. PT STILL CONFUSED AND UNABLE TO FOLLOW DIRECTION. PT SLEPT FOR MOST OF SHIFT. PT CONTINUES TO HAVE VERY RED [place] AREA. NYSTATIN CREAM APPLIED ORDERED. PT CURRENTLY SLEEPING AND BREATHING EASY. NO ISSUES NOTED DURING SHIFT. CALL LIGHT IN REACH AND BED ALARM ON.
--- NOTE | 2018-12-15 12:24 | NUR ---
AGITATION INCREASED AGITATION, 10MG IM ZYPREXA GIVEN, WILL MONITOR
--- NOTE | 2018-12-15 14:28 | NUR ---
PENA PT'S PENA REMAINS DUE TO RETENTION. PT HAS BEEN UNABLE TO VOID WHEN PENA REMOVED.
--- NOTE | 2018-12-15 15:23 | NUR ---
Pt. sitting in a chair a nurse is feeding him prayed for the pt.
--- NOTE | 2018-12-15 17:24 | NUR ---
PT WAS MILDLY AGITATAED THIS MORNING, DID TAKE HIS AM MEDS WITH APPLESAUCE. FIGHTING AGAINST RESTRAINTS AND PULLING AT PENA. PT BECAME MORE AGITATED THRU THE SHIFT, REFUSING TO EAT AND SPITTING FOOD AT STAFF, IM ZYPREXA GIVEN FOR INCREASED AGITATION. AGITATION DECREASED SOMEWHAT BUT PT CONTINUED TO ATTEMPT OOB AND PULL CATH. HE DID TAKE HIS AFTERNOON SEROQUEL CRUSHED AND IN ICE CREAM. NO ACUTE CHANGES NOTED, WILL CONTINUE TO MONITOR AND REPORT TO ONCOMING RN.
--- NOTE | 2018-12-16 06:41 | NUR ---
confused but alert and responsive to voice, asphasic, some words are understandable but mouns tend to be lost, iv still flushing, on room air with call light in reach, very active for the last hour though he did get some during the night, medication given crushed in something he wants, was spit out but ice cream was eaten, will continue to monitor, treat and assist until provide bsr to day staff
--- NOTE | 2018-12-16 11:49 | NUR ---
Pt. is in bed counfused and restless offered spiritual support and prayers
--- NOTE | 2018-12-16 18:39 | NUR ---
PATIENT BECAME MORE AGITATED AFTER BREAKFAST THIS AM AND PULLED OUT HIS PENA. PATIENT HAS NOT VOIDED SINCE. BLADDER SCAN SHOWED 160CC IN BLADDER. ORDER RECEIVED TO PLACE PENA IF PATIENT IS UNABLE TO VOID AND PATIENT IS RETAINING. BLED FROM PENIS FOR SEVERAL HOURS THIS SHIFT AFTER PULLING ON PENA. REMAINS IN SOFT WRIST RESTAINTS AND EDIL. FAMILY AT BEDSIDE FOR SHORT TIME TODDAY. ATIVAN AND ZYPREXA GIVEN X1 TO TREAT AGITATION. YEAST RASH TO MARY ELLEN AREA, NYSTATIN APPLIED TO TREAT. VSS THIS SHIFT, LUNGS CLEAR AND ON RA. PATIENT HAD VERY LITTLE PO INTAKE THIS SHIST AND IS A FEEDER. 18G IV TO MERRICK STARR AND SL.
--- NOTE | 2018-12-17 05:32 | NUR ---
Rn summary: Patient at beginning of shift is restless, constantly moving legs up and down, trying to get out of bed, throwing legs over the side rails on the left side. Pt has been in wrist and shilpi restraints all shift. Pt will kick and hit and try to grab ahold of staff. Pt is repositioned and he immediately wiggles down again in bed. Pt did receive 0.5mg of ativan and his ordered serroqel. Pt has rested well since. Pt has not voided, he does have some christi blood from his meatus. (pt did pull out his jeong cath with balloon inflated on day shift.) Bladder scan shows 699 in bladder. Placed coude cath with minimal resistance, did get christi blood return that quickly changed to yellow. Pt has continued to rest. Repositioned. Restraints remain in place. Vital signs are stable. Bed alarm on. to protect jeong.
--- NOTE | 2018-12-17 09:25 | NUR ---
PATIENT DID NOT EAT BREAKFAST THIS SHIFT DUE TO NOT BEING AWAKE ENOUGH. RN NOTIFIED.
--- NOTE | 2018-12-17 14:32 | NUR ---
MET PT. SITTING UP IN BED and taking her snack, confused offered prayers and encouraged pt.
--- NOTE | 2018-12-17 17:48 | NUR ---
Pt sitting up in bed with restraints. calm response to staff with hand holding attmepts to answer some questions. constantly wiping at mouth. and tremeor noted. pt eyes clamped shut hard to open pupils pinpoint. no signs of seizue activity. pt tried to scoot himself up in bed and assist. asked if he had headache nodded no asked if his mouth hurt nondded yes. he nodded no to feeling hard to breath and no to stomach ache. Asked if he was hungry, offered to assist with meals. Told him what was on tray before if fed him. He wanted to try mached potaotes was jaya to swallow but grimaced nodded yes to pain. Gave him milk with a straw he drank it all and nodded yes that it was good. Review with nursing states his behaviours are better but seems painfull especially his mouth. pt difficult symptom managment. Possibly may not be able to to tolerate PO intake much longer. Nursing relayed she discussed hospice and plan of with . Attemtpted to call no answer. Will discuss with . Transition to hospice and memory care may greatly enhance quality of life for patient and . hospice care and in house nursing care at facility should greatly improve pain management and airway stress. Did not see drooling but he may be starting to not want to swallow saliva and need treatment for secretions. Pt would benefit from magic mouthwash without lidocaine at this time. pt may benefit from a recliner with a neck pillow so he can position his head and airway in a more forward position. Positioning in chair may help with aggitation and airway stress. Nursing relayed pt was able to briefly stand today with great assistance. Pt FAST score is is 7c. Pt suggest change tylenol to po or rectal.
--- NOTE | 2018-12-17 18:24 | NUR ---
PATIENT REMAINS IN SOFT WRIST RESTRAINTS AND EDIL. PENA IN PLACE TO GRAVITY AND CONTINUES TO BE BLOOD TINGED. FLUSHED CATHETER X1 THIS SHIFT PER MD ORDER. ZYPREXA AND ATIVAN GIVEN X1 THIS SHIFT TO CONTROL AGITATION. PATIENT ATE 100% OF LUNCH, BUT DID NOT EAT BREAKFAST OR DINNER. FAMILY AT BEDSIDE TODAY BRIEFLY. NYSTATIN APPLIED TO MARY ELLEN AREA TO TREAT RASH. WORKED WITH PT TODAY, WAS ABLE TO STAND. 18G IV TO MERRICK WNL AND SL. TYLENOL GIVEN X1 TODAY TO TREAT PAIN.
--- NOTE | 2018-12-18 05:30 | NUR ---
Rn summary: Patient is confused. He usually has his eyes closed. Pt was restless at the beginning of shift, not as physically restless as yesterday. Pt is very quick and will grab at you and kick you during cares. Pt did take his pills this evening, but spit out plain pudding after a few bites. Pt remains in vest shilpi and wrist restraints. He has rested well on the serroqel. Kirk cath has remained patent with light haider urine. IV remains patent. Bed alarm on. Pt under camera watch.
--- NOTE | 2018-12-18 14:37 | NUR ---
Pt, is lying in bed and is restless and confused offered prayers
--- NOTE | 2018-12-18 16:21 | NUR ---
Pt resting review with nursing pt had some outbursts today and increased aggitation. Review of PO intake and s/s of pain to his mouth. Attemtpted contact with again. she answered her phone and friend was there and was able to confirm she was who she said she was. and give pt information to confirm. Intitiated review of his symptoms and his needs. Asked what her thoughts were and she was at a loss. We reviewed the past six months and his decline. Review of his symptoms she relayed increasing pain to mouth and throat and confussion. She and her daughter are distraught over his behaviours and comfort. We reviewed his prognosis. Reviewed his pain and how he positions himself and possible airway discomfort. We discussed possible hospice care as an option to meets criteria and needs more symptom support. states she has a friend who volunteers at hospice and has expericinced it with her family. She agrees hospice may offer some help with treating his pain, outbursts and discomfort. Advised her to speak with her children and would call her back. advised Dr Rivera and Vickie community case manager from [facility]. Assisting Dr Rivera with medicationand plan of care. Review of medications with pharmacy for cumulative effects and narcotics dosing. Spoke with Doctor Parker on his dosing of medications and adjustment. Dr Parker agreed with low doing of roxinalol for moderate pain. Goal is improved rest and sleep hygiene and reduce oral and throat pain with mouthwash and prn meds. Goal is to remove restraints. Updated on plan and agrees with comfort care starting today. She is in contact with roberto and geovanna for placement. Reivewed with holistic care and support for not only her but offered supportive care for her and her daughter. Pt not eminent will continue routine meds if he can swallow and reevaluate daily with physicians.
--- NOTE | 2018-12-18 16:47 | NUR ---
SHIFT SUMMARY PATIENT IS PLEASANT, MOVED TO COMFORT CARE TODAY, NO ACUTE CONCERNS AT THIS TIME. HE IS STILL IN RESTRAINTS RELATED TO HIS AGGRESSION TODAY AND LAST NIGHT. HE HAD ONE DOSE OF BENADRYL 25, HALDOL 5, ATIVAN 2. VITALS ARE SET TO PRN AND FOR MEDICATIONS WELL NARCAN NEEDED. ASSESS PATIENT FOR SIGNS AND SYMPTOMS OF PAIN PRN.
--- NOTE | 2018-12-19 07:20 | NUR ---
SHIFT SUMMARY PT IN EDIL VEST AND WRIST RESTRAINTS. HE WAS ABLE TO TAKE HIS PILLS CRUSHED IN PUDDING AND SLEPT THROUGH THE NIGHT AFTER THAT. URINE IN PENA BAG DARK BUT URINE IN TUBING YELLOW URINE. CALL LIGHT IN REACH.
--- NOTE | 2018-12-19 13:07 | NUR ---
Family at bedside states pt feeling better with magic mouthwash. Pt eyes open in bed but sliding and aggitated and flushed. Will review medication swith physician. may benefirt from scheduled low dose tylenol or pain medication. Will review ativan use with phsyican pt may benefit from some consistant dosing and titration of pain meds.
--- NOTE | 2018-12-19 16:40 | NUR ---
SHIFT SUMMARY PATIENT IS COMFORTABLE ON COMFORT CARE. HE IS PLEASANT AT THIS TIME. HIS RESTRAINTS ARE ON BUT HE IS BEGINNING TO CALM DOWN. PATIENT HAS BEEN GIVEN HIS MAGIC MOUTHWASH TODAY AND IS FEELING MILDLY BETTER. HE IS BECOMING LESS AGGRESSIVE STILL WORKING ON TRIALING HIS RESTRAINTS OFF.
--- NOTE | 2018-12-20 06:25 | NUR ---
SHIFT SUMMARY PT ON CC. WRIST RESTRAINTS STILL REQUIRED TO PROTECT PENA LINE. TOOK HIS CRUSHED PILLS. HE SLEPT FOR AWHILE AFTERWARDS BUT WAS STILL MOVING AROUND IN BED SLIDING DOWN T/O NIGHT THROWING HIS LEGS OVER THE SIDE AND NOT SLEEPING.
--- NOTE | 2018-12-20 17:32 | NUR ---
SHIFT SUMMARY PATIENT ON COMFORT CARE. PATIENTS PENA WAS REMOVED AND CURRENTLY TRIALING HIS RESTRAINTS OFF THE PATIENT. AWAITING TO SEE IF WE NEED TO REPLACE THE RESTRAINTS. WE HAVE BEEN GIVEN A B52 FOR THE PATIENT AND IT DID NOT WORK WELL YET. WE ARE AWAITING RESULTS. CURRENTLY THERE ARE CONCERNS FROM THE FAMILY ABOUT THE RESTRAINTS. PATIENT IS HAPPIER WHEN HE IS OUT, HE USED THE MAGIC MOUTHWASH TODAY AND HAD A COUPLE GOOD HOURS WHERE HE WAS HAPPY. WILL ASSESS FOR CHANGES THROUGHOUT THE DAY.
--- NOTE | 2018-12-21 06:35 | NUR ---
SHIFT SUMMARY PT ON CC. NO RESTRAINTS NEEDED. HAS BEEN INCONT VOIDED AFTER PENA D/C'D. HE SLEPT THROUGH THE NIGHT. TOO SLEEPY LETHARTIC TO TAKE HIS HS MEDS. BED ALARM IN USE.
--- NOTE | 2018-12-21 07:55 | NUR ---
HE IS NONVERBAL WITH US. SKIN PINK WARM AND DRY. HE ALLOWED US TO CHANGE HIM, CREAM HIM AND BLADDER SCAN HIM. HE FOLLOWED ME WITH HIS EYES. AFTER ALL CARE, HE HAS FALLEN ASLEEP, EVEN THOUGH HE WAS WIDE AWAKE WHEN WE CAME IN. HE APPEARS COMFORTABLE.
--- NOTE | 2018-12-21 10:25 | NUR ---
HE HAS BEEN RESTLESS OFF AND ON. AT BEDSIDE. URINAL HELD IN PLACE. HE WAS UNABLE TO VOID. LAST BLADDER SCAN BEFORE BREAKFAST WAS 447. WILL FOLLOW UP.
--- NOTE | 2018-12-21 12:10 | NUR ---
HE HAS BEEN BLADDER SCANNED AGAIN. AMT 357. HAS GONE HOME. HE IS INTERMITTENTLY RESTLESS BUT COOPERATIVE. HE ATE A MODERATE AMT OF HIS EARLY LUNCH.
--- NOTE | 2018-12-21 16:26 | NUR ---
Pal Spiritual Care initial visit: Mr. Purdy was alone in room. He was out out of restraints and making movements with his hands/arms. I sat bedside him for awhile. He did not respond to me, but continued with the action. When I asked him if he was "fishing" he turned to me, eyes wide, and said "yes." He then went back to "fishing." He does not appear in distress or pain. I prayed for him at bedside. I will remain available.
--- NOTE | 2018-12-21 16:38 | NUR ---
1400 NOTE WILL GIVE TYLENOL FOR DISCOMFORT DECLARED TO THE PALLIATIVE CARE NURSE. WILL GIVE BOWEL CARE MEDS IF HE WILL ACCEPT THEM. NO OTHER CHANGES. HE SHOWERED.
--- NOTE | 2018-12-21 16:40 | NUR ---
1600 NOTE HE HAS BEEN BLADDER SCANNED AGAIN. IT SHOWED 479 MLS.ATTENDS DRY. NO CHANGES.
--- NOTE | 2018-12-21 16:43 | NUR ---
1400 NOTE NO CHANGES. WHEN HE IS AGITATED HE SHAKES THE BEDRAIL OR KICKS THE FOOTBOARD. HE QUITS ON HIS OWN. HE ACCEPTED AN ICE CREAM CUP. I STARTED IT WITH MEDICATION AND FINISHED IT PLAIN.
--- NOTE | 2018-12-21 19:21 | NUR ---
1800 NOTE NO CHANGES. HE APPEARS COMFORTABLE. DR. REYES LEFT AN ORDER FOR PENA RE-INSERTION FOR BLADDER SCAN GREATER THAN 500 MLS. HE VOIDED 200 MLS AFTER THE LAST BLADDER SCAN.
--- NOTE | 2018-12-22 00:08 | NUR ---
KEPPRA HELD PT TAKES MEDICATIONS CRUSHED IN PUDDING. PT HAD DIFFICULT TIME SWOLLOWING CRUSHED MEDICATIONS THIS NIGHT. UNABLE TO CRUSH KEPPRA, CALL TO PHARMACIST TO CONFIRM THIS. PHARMACIST STATED OKAY TO BREAK IN HALF BUT CANNOT CRUSH. HELD KEPPRA DOSE. CALL TO HOSPITALIST WHO STATED THAT IT IS OKAY TO HOLD LEX KEPPRA DOSE.
--- NOTE | 2018-12-22 05:17 | NUR ---
SHIFT SUMMARY PT ADMITTED FOR SEPSIS. DNR-CC. PUREE ADA DIET, ASPIRATION PRECAUTIONS, UP IN CHAIR FOR MEALS TID TOLLERATED. 2 PERSON STAND STEP TRANSFER TO CHAIR PER REPORT, PT DID NOT GET UP SO FAR THIS SHIFT. HOB AT 45 DEGREES. REINSERT CATHETER PRN FOR POST VOID URINARY RETENTIONS GREATER THEN 500 MLS. BLADDER SCAN PT AT 0230 WITH, 253 MLS PRESENT. 18G IV TO MERRICK. TAKES MEDICATIONS CRUSHED IN PUDDING. 2 PERSON ASSIST WITH TRANSFER. PT IS A FEEDER. THE PT PRESENTED FROM PCP OFFICE FOR AMS AND INCREASED WEAKNESS. THE PT WAS NOTED BY AND DAUGHTER TO HAVE ADVANCED DEMENTIA AND INCREASINGLY VIOLENT TOWARDS WITH HALLUCINATIONS. THE FAMILY HAS INDICATED THAT [facility] ARE INTERESTED IN HAVING THE PT PLACED IN FOSTER CARE OR AN ASSISTED LIVING FACIITY WITH HOSPICE TO FOLLOW THE PT. THE PT HAD NOT BEEN COMBATIVE SO FAR THIS SHIFT. THE PT DID APPEAR TO BEGIN GETTING FAIRLY AGITATED PRIOR TO ADMINISTRATION OF LEX MEDICATIONS BUT FOLLOWING MEDS APPEARED TO CALM DOWN A BIT. PT ABLE TO VOID SO FAR THIS SHIFT WITH POST VOID RESIDUAL OF 253. THE PT HAS APPEARED TO SLEEP COMFORTABLY MOST OF THE NIGHT WITH NO APPARENT SIGNS OF ACUTE DISTRESS. PT IS NOT ABLE TO MAKE NEEDS KNOWN, FREQUENT VISUAL CHECKS. BED ALARM FOR SAFETY. WILL CONTINUE TO MONITOR.
--- NOTE | 2018-12-22 06:08 | NUR ---
BLADDER SCAN PT VOIDED X1 TOWARDS BEGINNING OF SHIFT. BLADDER SCAN JUST NOW WITH RESULTS OF 437. WILL NOT REPLACE CATHETER AT THIS TIME PT HAS NOT VOIDED TO OBTAIN POST VOID RESIDUAL AND PT RESULTS NOT GREATER THEN 500.
--- NOTE | 2018-12-22 08:22 | NUR ---
1320 NOTE MILD RESTLESSNESS. I HELD THE URINAL IN PLACE FOR HIM. NO VOID. NYSTATIN CREAM APPLIED TO MARY ELLEN-RECTAL YEAST RASH. HE LOOKS CONTENT.
--- NOTE | 2018-12-22 11:02 | NUR ---
1000 NOTE HE ATE WELL (FEEDER). HE HAS BEEN CONTENT AND COMFORTABLE. NO VOID YET. KEPPRA WAS CHANGED TO THE LIQUID FORM. HE DID WELL WITH THAT. HE HAS BEEN ABLE TO TAKE TOPROL AND FLOMAX WHOLE. OTHER MEDS ALL CRUSHED.
--- NOTE | 2018-12-22 12:13 | NUR ---
IN HIGH FOWLERS FOR LUNCH. NO CHANGES.
--- NOTE | 2018-12-22 14:11 | NUR ---
Pt.m lying in bed resting spouse is not in the room offered prayers for pt.
--- NOTE | 2018-12-22 14:31 | NUR ---
1400 NOTE HE HAS BEEN ST.CATHED FOR 550 MLS. AFTER A BLADDER SCAN SHOWED 675 MLS. IT TOOK 3 THENO 4 STAFF TO MAINTAIN A STERILE FIELD. HE DID NOT LIKE THE PROCESS BUT SETTLED DOWN EASILY RIGHT AFTERWARD.
--- NOTE | 2018-12-22 16:42 | NUR ---
NO CHANGE IN HIS CONDITION.
--- NOTE | 2018-12-22 18:29 | NUR ---
HE IS RESTING IN BED AFTER BEING FED AN EARLY DINNER. ELBOW PROTECTORS ON BILATERALLY. HE REMAINS NONVERBAL AND COOPERATIVE. HE LOOKS COMFORTABLE EVEN THOUGH HE SCOOTS AROUND IN BED A LOT. HE HAD 1 STRAIGHT CATH AT 1345 TODAY. HE HAS NOT VOIDED THIS SHIFT.
--- NOTE | 2018-12-22 20:37 | NUR ---
Comfort Care: Late entry: Pt seen and evaluated by palliative care earlier. Reviewed medications. Pt appears comfortable at the time of my assessment. There are no visitors in the room. Symptoms managed.
--- NOTE | 2018-12-23 04:59 | NUR ---
SHIFT SUMMARY NO APPARENT ACUTE CHANGES NOTED SO FAR THIS SHIFT. THE PT HAS NOT VOIDED SO FAR THIS SHIFT. THE PT WAS STRAIGHT CATH ON DAY SHIFT. BLADDER SCAN AT 2100 PT WITH 123 MLS, BLADDER SCAN AGAIN AT 0230 AND PT WITH 144 MLS. PT HAS APPEARED TO SLEEP COMFORTABLY MOST OF THE NIGHT AND HAS HAD MINIMAL ORAL INTAKE. THE PT APPEARS TO BE SLEEPING COMFORTABLY AT THIS TIME. NO APPARENT SIGNS OF ACUTE DISTRESS. FREQUENT VISUAL CHECKS AND COMFORT CARE ASSESSMENTS Q 2 HRS. BED ALARM FOR SAFETY.
--- NOTE | 2018-12-23 13:28 | NUR ---
Pt. is lying in bed and weak and confused, the spouse is not in the room ,offered some prayers.
--- NOTE | 2018-12-23 14:10 | NUR ---
PATIENT CHECK FOR INCONTINENCE. NYSTATIN CREAM APPLIED TO MARY ELLEN AREA. REPOSITIONED TO L SIDE. PATIENT BREATHING SHALLOW. SLEEPING COMFORTABLY.
--- NOTE | 2018-12-23 14:12 | NUR ---
PATIENT ASLEEP AT SHIFT CHANGE. WILL ASSESS ABILITY TO GET UP IN CHAIR AND TAKE MEDICATIONS.
--- NOTE | 2018-12-23 14:13 | NUR ---
PATIENT PLACED IN CHAIR. SLIDDING OUT OF CHAIR. TAKEN OUT OF CHAIR, PLACED BACK IN BED. UNABLE TO GIVE MEDICATIONS DUE TO SEDATION. CAME, SAT WITH PATIENT FOR MID MORNING. PALLIATIVE CARE CALLED REGARDING MEDS ON EMAR. OKAY TO HOLD MEDS PRN FOR SEDATION.
--- NOTE | 2018-12-23 14:14 | NUR ---
PATIENT TOO ASLEEP TO EAT, TRAY HELD. NO ACUTE ISSUES NOTED.
--- NOTE | 2018-12-23 16:56 | NUR ---
SHIFT SUMMARY PATIENT HAS BEEN ASLEEP THROUGHOUT THE SHIFT. WOKE UP SLIGHTLY DURING 1 BED CHANGE. BLADDER SCANNED NOTED 194ML RESIDUAL. WCTM.
--- NOTE | 2018-12-23 17:59 | NUR ---
PATIENT AWOKE. REPOSITIONED. OFFERED FOOD. DRANK HIS MILK, EATING WITH ASSIST.
--- NOTE | 2018-12-24 04:28 | NUR ---
SHIFT SUMMARY NO APPARENT ACUTE CHANGES NOTED SO FAR THIS SHIFT. THE PT APPEARED TO REST COMFORTABLY MOST OF THE SHIFT. THE PT WAS ALERT ENOUGH TO TAKE MEDICATIONS FOR THIS NURSE. BLADDER SCAN AT 0130 WITH 370 MLS IN BLADDER AT THAT TIME. WILL BLADDER SCAN PT AGAIN SHORTLY. THE PT APPEARS TO BE RESTING COMFORTABLY AT THIS TIME WITH NO APPARENT SIGNS OF ACUTE DISTRESS.
--- NOTE | 2018-12-24 09:28 | NUR ---
SPOKE WITH DR. RYEES REGARDING NOT BEING ABLE TO STRAIGHT CATH PATIENT DUE TO PROSTATE. HE SAID AT THIS POINT MONITOR FOR COMFORT. IF APPEARS UNCOMFORTABLE WILL READDRESS.
--- NOTE | 2018-12-24 10:17 | NUR ---
PATIENT ASLEEP. NYSTATIN CREAM TO GROIN.
--- NOTE | 2018-12-24 10:17 | NUR ---
ATTEMPTED TO INSERT A STRAIGHT CATH, UNABLE. PATIENT CURRENTLY ASLEEP. APPEARS COMFORTABLE.
--- NOTE | 2018-12-24 15:07 | NUR ---
12 FR PENA PLACED IN PATIENT. PENA BAG ATTACHED LETTING PENA DRAIN. PATIENT TOLERATED THIS WELL. AT THIS TIME NOT PULLING ON PENA. WCTM.
--- NOTE | 2018-12-24 15:14 | NUR ---
PATIENT SLEEPING. FAMILY IN VISITING. PATIENT TO DROWSY TO WAKE FOR FAMILY VISIT.
--- NOTE | 2018-12-24 15:17 | NUR ---
PATIENT STARTING TO WAKE UP. NYSTATIN CREAM APPLIED TO BOTTOM.
--- NOTE | 2018-12-24 15:17 | NUR ---
INSERTED PENA FOR PATIENT COMFORT.
--- NOTE | 2018-12-24 16:17 | NUR ---
AT BEDSIDE. THIS RN PROVIDED SIPS OF WATER. TOLERATED WELL WITH A STRAW.
--- NOTE | 2018-12-24 18:14 | NUR ---
PATIENT REFUSED TO EAT, CURRENTLY SLEEPING.
--- NOTE | 2018-12-25 04:53 | NUR ---
CHARGE ENTRY CLERK SUMMARY NO ACUTE CHANGES THIS SHIFT. PT REMAINS ON COMFORT CARE. IN NO APPARENT DISTRESS. PT DOES NOT SHOW SIGNS OF PAIN WHEN REPOSITIONING. PT RESTING QUIETLY MAJORITY OF THE SHIFT, OCCASINALLY TRYING TO TALK TO STAFF ALTHOUGH SPEECH IS INCOMPREHENSIBLE. MORE FREQUENT VISUAL CHECKS ON PT SINCE DAY SHIFT RN WAS ABLE TO PLACE A PENA CATHETER, PT HAS A HX OF PULLING HIS PENA CATHS. WILL CONTINUE TO MONITOR.
--- NOTE | 2018-12-25 10:20 | NUR ---
VERIFY VIDEO MONITORING CALLED TO VERIFY MONITOR ARMINDA IS OBSERVING THE PT
--- NOTE | 2018-12-25 16:34 | NUR ---
SHIFT SUMMARY 83 YR OLD MALE ADMITTED FOR SEPSIS. DNR. PLAN IS FOR DC TO [facility] ON HOSPICE. COMFORT CARE PT. CURRENTLY HAS A NEW PENA IN PLACE. FIDDLED AT TIMES WITH TUBING, BUT DISTRACTED PT WITH PILLOWS AND BLANKETS TO CAMOUFLAGE TUBING. PT RESTED COMFORTABLY MOST OF SHIFT. BP MEDS DC'D TODAY WE ARE NOT CHECKING VITALS EXCEPT PRN WITH THIS PT. PUREE DIET. ROOM AIR. PILLS CRUSHED IN APPLESAUCE NORMALLY. TODAY THE PT WOULD NOT EAT OR SWALLOW. NYSTATIN CREAM IS AVAILABLE FOR RASH ON GROIN. HX: HTN, SEIZURES, COPD, DEMENTIA, DM2, NEUROPATHY, KIDNEY CANCER, CKD3, TONGUE CANCER.
--- NOTE | 2018-12-26 06:38 | NUR ---
SHIFT SUMMARY PT IS AN 83 Y/O MALE, ADMITTED FOR SEPSIS AND CURRENTLY ON COMFORT CARE. HE IS A&O X 0, WITH GARBLED AND DIFFICULT TO UNDERSTAND SPEECH. PT APPEARED COMFORTABLE, WITH NO S/S OF PAIN OR DISTRESS. PT'S PENA REMAINS IN PLACE, PATENT AND DRAINING. NO OTHER ACUTE CHANGES IN PT CONDITION NOTED. WILL CONTINUE TO MONITOR AND TREAT PER EMAR UNTIL HAND OFF TO DAY SHIFT.
--- NOTE | 2018-12-26 18:40 | NUR ---
SHIFT SUMMARY PT DENIED PAIN TODAY. PT WAS ABLE TO TAKE MORNING MEDS WITH APPLESAUCE, BUT THIS AFTERNOON AND EVENING, HE HAS BEEN UNABLE TO SWALLOW ANYTHING. DRANK 2 SIPS OF ENSURE TODAY, NO FOOD INTAKE. Q2 TURN, BOTTOM HAS YEAST RASH ALL OVER, NYSTATIN CREAM APPLIED. PENA INTACT AND DRAINING, HASN'T BEEN PULLING AT IT TODAY, SO HAS REMAINED OUT OF RESTRAINTS. RESTED QUIETLY MOST OF THE DAY. FAMILY VISITED. CALL LIGHT IN REACH, [facility]
--- NOTE | 2018-12-27 06:43 | NUR ---
SHIFT SUMMARY PT IS AN 83 Y/O MALE, ADMITTED FOR SEPSIS AND CURRENTLY ON COMFORT CARE. PT IS A&O X SELF ONLY, WITH GARBLED SPEECH. HE WAS UNABLE TO SWALLOW HIS EVENING PILLS. NO S/S OF PAIN OR DISTRESS. NO ACUTE CHANGES IN PT CONDITION NOTED. WILL CONTINUE TO MONITOR AND TREAT PER EMAR UNTIL HAND OFF TO DAY SHIFT.
--- NOTE | 2018-12-27 09:41 | NUR ---
PT REFUSING MEDS AND FOOD, LIQUIDS. APPEARS IN NO ACUTE DISTRESS. LYING IN BED EYES OPEN WITH GARBALED SPEECH AT TIMES. REPOSITIONED OFF BONY PROMINENCES.
--- NOTE | 2018-12-27 16:06 | NUR ---
PT LYING IN BED EYES OPEN. APPEARS IN NO ACUTE DISTRESS. PENA DRAINING MECHE URINE. REFUSING FOOD, DRINK AND PO MEDS DR. CRUMP AWARE. REPOSITIONED Q2H. GARBLED SPEECH.
--- NOTE | 2018-12-27 18:37 | NUR ---
SHIFT SUMMARY GARBLED SPEECH. NO DISTRESS OR SIGNS OF PAIN. Q2 TURNS. NO PO INTAKE. REFUSED ALL PO MEDS. PENA DRAINING MECHE URINE. NYSTATIN CREAM TO SACRAL AREA. COMFORT CARE.
--- NOTE | 2018-12-27 20:21 | NUR ---
Comfort Care: Pt appears to be comfortable. Spoke with nurse, Elodia. Pt has not required medication. He stopped eating a couple days ago, per Elodia. No concerns at this time. He is not in restraints and not having behaviors. He will likely be transitioning to actively dying phase. No mottling at time of evaluation.
--- NOTE | 2018-12-28 05:44 | NUR ---
SHIFT SUMMARY PT IS AN 83 Y/O MALE, ADMITTED FOR SEPSIS AND CURRENTLY ON COMFORT CARE. HE IS A&O X SELF ONLY, WITH GARBLED SPEECH. PT HAS BEEN REFUSING ALL ORAL INTAKE AND PO MEDICATIONS. PT'S PENA REMAINS IN PLACE, PATENT AND DRAINING. NO S/S OF PAIN OR DISTRESS. NO ACUTE CHANGES IN PT CONDITION NOTED. WILL CONTINUE TO MONITOR AND TREAT PER EMAR UNTIL HAND OFF TO DAY SHIFT.
--- NOTE | 2018-12-28 14:41 | NUR ---
Pal Spiritual care note: Mr. Purdy was alone in room, laying in bed, eyes slightly open. He appears calm. He did not respond to voice and opened eye wider to touch. Provided audible prayer at bedside. Mr. Purdy appears well cared-for by nursing. I will remain available to pt and family.
--- NOTE | 2018-12-28 16:46 | NUR ---
SHIFT SUMMARY PT RESTING QUIETLY IN BED DURING SHIFT REPORT. PT ON COMFORT CARE WAITING TO D/C ON HOSPICE TO "[facility]" CARE FACILITY. IN FOR A WHILE TODAY WELL DAUGHTER THIS AFTERNOON. PT REFUSING ANYTHING ORAL AND NOT SWALLOWING. PT REFUSING MEDICATIONS AND THICKENED LIQUIDS. PT DID ALLOW ORAL CARE BRIEFLY. PENA CATH FOR RETENTION; MINIMAL OUTPUT, BUT PT NOT DRINKING ANYTHING EITHER. RADIO ENGINEER IN TO ANSWER QUESTIONS FOR AND POTENTIAL FACILITY. PT HAS BEEN CALM AND AWAKE FOR SEVERAL HOURS. NONVERBAL. WILL MOTION WITH HAND TO GO AWAY IF TRYING TO PUT ANYTHING IN HIS MOUTH. YEAST INFECTION TO MARY ELLEN AREA AND BUTTOCKS; NYSTATIN APPLIED. BED ALARM ON FOR SAFETY. CALL LT IN REACH, BUT UNABLE TO USE APPROPRIATELY.
--- NOTE | 2018-12-28 18:44 | NUR ---
pt resting quietly, increased farailty no s/s of pain or stress.
--- NOTE | 2018-12-28 18:51 | NUR ---
1835 PT PASSED. RN RESOURCE NURSE NOTIFIED. LAURA FISH NOTIFIED @ 1836. [employer] A[employer]LYT[employer] LEAD NOTIFIED. JEROD NOTIFIED @ 1840. REQUESTING [facility] IN [facility]. FRANKIE RN NOTIFIED.
== END 2018-12-28 18:35 | DRG 871 ==
LOC: ER 11:37 → MEDS 11:38
PROVIDERS: Emergency Medicine; Family Medicine; Hospitalist; Internal Medicine; Student in an Organized Health Care Education/Training Program; ADMIT Family Medicine
DX: A41.9 Sepsis, unspecified organism (principal); G92 Toxic encephalopathy; E87.2 Acidosis; N17.9 Acute kidney failure, unspecified; T83.83XA Hemorrhage due to genitourinary prosthetic devices, implants and grafts, initial encounter; N39.0 Urinary tract infection, site not specified; F05 Delirium due to known physiological condition; G40.209 Localization-related (focal) (partial) symptomatic epilepsy and epileptic syndromes with complex partial seizures, not intractable, without status epilepticus; F02.81 Dementia in other diseases classified elsewhere, unspecified severity, with behavioral disturbance; R65.20 Severe sepsis without septic shock; Z51.5 Encounter for palliative care; J44.9 Chronic obstructive pulmonary disease, unspecified; Z85.528 Personal history of other malignant neoplasm of kidney; Z86.39 Personal history of other endocrine, nutritional and metabolic disease; Z90.5 Acquired absence of kidney; I25.10 Atherosclerotic heart disease of native coronary artery without angina pectoris; Z98.52 Vasectomy status; E78.5 Hyperlipidemia, unspecified; Z91.81 History of falling; N18.3 Chronic kidney disease, stage 3 (moderate); G47.33 Obstructive sleep apnea (adult) (pediatric); Z90.79 Acquired absence of other genital organ(s); R74.0 Nonspecific elevation of levels of transaminase and lactic acid dehydrogenase [LDH]; N40.1 Benign prostatic hyperplasia with lower urinary tract symptoms; R33.9 Retention of urine, unspecified; G31.83 Neurocognitive disorder with Lewy bodies; E11.42 Type 2 diabetes mellitus with diabetic polyneuropathy; E11.22 Type 2 diabetes mellitus with diabetic chronic kidney disease; E66.9 Obesity, unspecified; R45.6 Violent behavior; Z78.1 Physical restraint status; R63.0 Anorexia; R62.7 Adult failure to thrive; G30.9 Alzheimer's disease, unspecified; I12.9 Hypertensive chronic kidney disease with stage 1 through stage 4 chronic kidney disease, or unspecified chronic kidney disease; Z86.73 Personal history of transient ischemic attack (TIA), and cerebral infarction without residual deficits; Z68.31 Body mass index [BMI] 31.0-31.9, adult; Z85.810 Personal history of malignant neoplasm of tongue; Z85.51 Personal history of malignant neoplasm of bladder; E78.00 Pure hypercholesterolemia, unspecified
CPT/HCPCS: 36415; 51702; 70450; 71046; 76705; 80048; 80053; 81001; 82947; 83036; 83605; 83735; 84100; 84145; 85025; 85610; 87040; 87086; 93005; 93010; 96361; 96365; 96366; 96372; 96375; 97110; 97112; 97116; 97162; 97166; 97530; 97535; 99285-25; A9270; C9113; G0378; J0696; J1200; J1630; J1650; J2060; J2543; J3480; J7030; J7042